=== PATIENT | female | born 1980 | race Caucasian/White ===

== ENCOUNTER → 2020-07-18 | Outpatient (REF) | LOC: COL.LAB 15:25 | DX: Z20.828 Contact with and (suspected) exposure to other viral communicable diseases (principal) ==

== ENCOUNTER → 2020-07-20 | Outpatient (REF) | LOC: WSOH 13:33 | DX: Z02.89 Encounter for other administrative examinations (principal); J45.909 Unspecified asthma, uncomplicated; J18.9 Pneumonia, unspecified organism ==